=== PATIENT | female | born 1995 | race Caucasian/White ===

== ENCOUNTER 2018-06-20 08:45 | Inpatient (IN) ==
[2018-06-20] MEDS ORDERED: NALOXONE 0.4 MG/1 ML VIAL IVP PRN (20:42)
[2018-06-20] MEDS ORDERED: diphenhydrAMINE 50 MG/1 ML VIAL IVP PRN (20:42)
[2018-06-20] MEDS ORDERED: FAMOTIDINE 20 MG/2 ML VIAL IVP PRN ×2 (20:42)
[2018-06-20] MEDS ORDERED: OXYTOCIN 10 UNIT/1 ML IM PRN (20:42)
[2018-06-20] MEDS ORDERED: Misoprostol Tab 100 MCG TAB VAGINAL PRN (20:42)
[2018-06-20] MEDS ORDERED: Naloxone Inj 0.01 MG in Sodium Chloride 0.9% vial 1 ML IVP PRN (20:42)
[2018-06-20] MEDS ORDERED: Lidocaine 1% 10 MG/ML - 20 ML VIAL SUBCUT PRN (20:42)
[2018-06-20] MEDS ORDERED: METHYLERGONOVINE MALEATE 0.2 MG/1 ML VIAL IM PRN (20:42)
[2018-06-20] MEDS ORDERED: Nalbuphine Inj 20 MG/ML Ampule IVP PRN (20:42)
[2018-06-20] MEDS ORDERED: ONDANSETRON 4 MG/2 ML VIAL IVP PRN (20:42)
[2018-06-20] MEDS ORDERED: Metoclopramide Inj 10 MG/2 ML VIAL IV PRN (20:42)
[2018-06-20] MEDS ORDERED: Zolpidem Tab 5 MG TAB PO PRN (20:42)
[2018-06-20] MEDS ORDERED: Carboprost Inj 250 MCG/ML AMP IM PRN (20:42)
[2018-06-20] MEDS ORDERED: fentaNYL Inj 100 MCG/2 ML VIAL IV PRN (20:42)
[2018-06-20] MEDS ORDERED: CefOXitin Inj 2 GM in Sodium Chloride 0.9% 100 ML IV PRN (20:42)
[2018-06-20] MEDS ORDERED: ePHEDrine Inj 50 MG/ML AMP IVP PRN (20:42)
[2018-06-20] MEDS ORDERED: BUTORPHANOL TARTRATE 2 MG/1 ML VIAL IVP PRN (20:42)
[2018-06-20] MEDS ORDERED: CALCIUM CARBONATE 500 MG (TUMS) CHEWABLE TABLET PO PRN (20:42)
[2018-06-20] MEDS ORDERED: LIDOCAINE W/ SODIUM BICARB 0.5 ML SYR SUBD PRN (20:42)
[2018-06-20] MEDS ORDERED: CITRIC ACID/SODIUM CITRATE 30 ML CUP PO PRN (20:42)
[2018-06-20] MEDS ORDERED: MISOPROSTOL 200 MCG TABLET RECTAL PRN (20:42)
[2018-06-20] MEDS ORDERED: TERBUTALINE SULFATE 1 MG/1 ML SDV SUBCUT PRN (20:42)
[2018-06-20] MEDS ORDERED: LIDOCAINE HCL 2 % 10 ML JELLY URO-JECT TOPICAL PRN (20:42)
[2018-06-20] MEDS ORDERED: Phenylephrine Inj 50 MCG in Sodium Chloride 0.9% vial 0.5 ML IVP PRN (20:42)
[2018-06-20] MEDS ORDERED: Oxytocin 20 Units + LR 20 UNIT/1,000 ML BAG IV SCH (20:45)
[2018-06-20 21:14] LABS: Hematocrit [HCT] 33.5 % (37.0-47.0); MEAN CORPUSCULAR HEMOGLOBIN 28.4 PG (27-31); MEAN CORPUSCULAR HGB CONC 32.8 g/dL (33-37); MEAN CORPUSCULAR VOLUME 86.3 FL (81-99); MEAN PLATELET VOLUME 11.3 FL (7.4-12.2); RED BLOOD COUNT 3.88 10^6/uL (4.20-5.40)
[2018-06-21] MEDS: Lactated Ringers-OB Dept 1,000 ML PRIMARY IV SCH ×4 (01:35→16:46)
[2018-06-21] MEDS ORDERED: Oxytocin 20 Units + LR 20 UNIT/1,000 ML BAG IV SCH ×2 (04:05→15:04)
[2018-06-21] MEDS ORDERED: Fent/Bupiv 2mcg/0.0625% Epid 250 ML ONE (07:53)
--- NOTE | 2018-06-21 10:22 | OB.PROGRES ---
Date of Service: 06/21/18 Time of Service: 09:42 Interval History: Pt presented last night for cervical ripening prior to induction of labor today for symmetric IUGR. She was having occasional contractions upon admission. FHT were category 1. She was given 1 dose of cytotec and had irregular contractions. Pitocin augmentation was started early this morning. She had an epidural placed this morning at 0700 and is very comfortable. The pt was 5-6 cm at 0900, but baby was still high. Objective - Cervical Exam Cervical Exam: 5-6/70/-2 [place]: every 1-3 minutes, still irregular, some triplets Heart Rate: 120 baseline, occasional early decels. No other decels noted. Heart Rate Interpretation Category: Category I - Labs CBC and BMP: 06/20/18 21:00 - Vital Signs Last Taken Vital Signs: Vital Signs - Last Taken Temperature 98 F 06/21/18 07:45 Pulse Rate 85 06/21/18 09:15 Respiratory Rate 18 06/21/18 09:15 Blood Pressure 118/79 06/21/18 09:15 Pulse Ox 100 06/21/18 09:15 Assessment and Plan - Patient Problems (1) IUGR (intrauterine growth restriction) Current Visit: No Status: Acute - Assessment / Plan Additional Assessment/Plan Details: -comfortable with epidural. -pitocin augmentation underway. -AROM with clear fluid, baby came down nicely after this intervention. -anticipate normal vaginal delivery.
--- NOTE | 2018-06-21 14:55 | OB.DEL.SUM ---
Delivery Note Delivery Summary: After achieving complete dilation, the patient pushed for a short time to of a viable baby girl, Apgars 9/10, 6# 7oz, from OA postion, over an intact perineum. The placenta delivered promptly, spontaneously, intact with a 3 vessel cord. EBL 250 ml. There were no complications. Delayed cord clamping was observed. Mother and baby tolerated delivery well.
[2018-06-21] MEDS ORDERED: diphenhydrAMINE 25 MG CAPSULE PO PRN (15:04)
[2018-06-21] MEDS ORDERED: CALCIUM CARBONATE 500 MG (TUMS) CHEWABLE TABLET PO PRN (15:04)
[2018-06-21] MEDS ORDERED: BENZOCAINE/MENTHOL SPRAY 56 GM BOTTLE TOPICAL PRN (15:04)
[2018-06-21] MEDS ORDERED: diphenhydrAMINE 50 MG/1 ML VIAL IVP PRN (15:04)
[2018-06-21] MEDS ORDERED: LANOLIN HPA 40 GM TUBE TOPICAL PRN (15:04)
[2018-06-21] MEDS ORDERED: DIPH,PERTUSS,TET(ADACEL) VAC/PF 0.5 ML (Tdap) IM ONE (15:04)
[2018-06-21] MEDS ORDERED: GLYCERIN/WITCH HAZEL 1 BOX TOPICAL PRN (15:04)
[2018-06-21] MEDS ORDERED: Ondansetron ODT Tab 4 MG TAB PO PRN (15:04)
[2018-06-21] MEDS ORDERED: Nalbuphine Inj 20 MG/ML Ampule IVP PRN (15:04)
[2018-06-21] MEDS ORDERED: LIDOCAINE HCL 2 % 10 ML JELLY URO-JECT TOPICAL PRN (15:04)
[2018-06-21] MEDS ORDERED: ONDANSETRON 4 MG/2 ML VIAL IVP PRN (15:04)
[2018-06-21] MEDS ORDERED: ACETAMINOPHEN 325 MG TABLET PO PRN (15:04)
[2018-06-21] MEDS ORDERED: HYDROcodone-APAP 5 MG -325 MG TABLET PO PRN (15:04)
--- NOTE | 2018-06-21 15:17 | CRNA.PROCE ---
Central Neuraxis Block Placemt - - Safety Measures: Time Out Taken, Site Verified - - Type of Block: Epidural Reason for Block: Analgesia Moniters Used During Block: SPO2, NIBP Positioning: Sitting Skin Prep Used: ChloroPrep Draped: Yes Skin Infiltration - Enter Amount Used in Comment Field: 1% Xylocaine (mL): Yes (wheal) Spinal Needle Used: 18 Hustead 80 mm Local Anesthetic - Enter Amount Used in Comment Field: 5.0 % Xylocaine with Dextrose (ml): Yes (5ml Neg) Number of Centimeters Catheter Threaded: 4 Bioclusive Dressing Applied: Yes Anesthesia Time - Other Weight: 79.379 kg Height: 5 ft 7 in Body Mass Index (BMI): 27.3
--- NOTE | 2018-06-21 15:20 | CRNA.PROGR ---
Anesthesia Time - Procedure/Recovery Time Start Date: 06/21/18 End Date: 06/21/18 Anesthesia : Time In: 07:25 Anesthesia : Time Out: 08:00 Anesthesia : Total Time: 35 - Total Anesthesia Time Total Anesthesia Time (minutes): 35 - Other Weight: 79.379 kg Height: 5 ft 7 in Body Mass Index (BMI): 27.3 Physical Status: P2 Anesthesia Type: Epidural Obstetrics: Planned vaginal delivery w/ neuraxial labor anesthesia/analog
[2018-06-21] MEDS ORDERED: fentaNYL 2 MCG/BUPIVACAINE 0.0625%/NS 0.9% 250 ML BAG EPIDURAL SCH (15:30)
[2018-06-21] MEDS: IBUPROFEN 800 MG TABLET PO PRN (16:10)
[2018-06-21] MEDS ORDERED: RHO(D) IMMUNE GLOBULIN 1500 UNIT(300 mcg)SYRIN IM PRN (16:50)
[2018-06-21] MEDS: DOCUSATE 100 MG CAPSULE PO SCH (21:24)
[2018-06-22] MEDS: IBUPROFEN 800 MG TABLET PO PRN ×2 (02:21→11:41)
[2018-06-22 08:47] LABS: Hematocrit [HCT] 31.5 % (37.0-47.0); MEAN CORPUSCULAR HEMOGLOBIN 27.9 PG (27-31); MEAN CORPUSCULAR HGB CONC 31.7 g/dL (33-37); MEAN PLATELET VOLUME 11.4 FL (7.4-12.2); RED BLOOD COUNT 3.58 10^6/uL (4.20-5.40)
[2018-06-22] MEDS ORDERED: Prenatal Multivitamin Tab 1 TAB TAB PO SCH (09:00)
[2018-06-22] MEDS: DOCUSATE 100 MG CAPSULE PO SCH (09:03)
[2018-06-22 09:07] VITALS: BP 121/59; RESP 16; TEMP 97.7; O2SAT 99
[2018-06-22] MEDS ORDERED: FERROUS GLUCONATE 324 MG TABLET PO SCH (10:45)
--- NOTE | 2018-06-22 10:57 | OB.PROGRES ---
Subjective Post Day: 1 Pain Management: PO Manriquez Catheter: No Flatus: Yes Lochia Color: Rubra/Red Scant < 10 ml Diet: Regular Feeding Method: Exculsively Ambulating: Yes Objective - General General Appearance: POSITIVE: No Acute Distress, Cooperative - Cardiovacular Cardiovascular Exam: POSITIVE: RRR, No Murmur Edema: No Pedal Edema Extremities: Negative Jagdish's - Bilaterally - Respiratory Respiratory Exam: POSITIVE: Clear to Auscultation - Bilaterally, Breathing Non Labored - Abdomen Bowel Sounds: Present Assesstment / Plan (1) IUGR (intrauterine growth restriction) Current Visit: No Status: Acute (2) Status post vaginal delivery Current Visit: Yes Status: Acute Assessment / Plan: -routine cares. -breast feeding well. -rh negative--needs rhogam as baby was A+ and mom A- -rubella immune. -d/c home later today.
== END 2018-06-22 17:50 | disposition home or self-care (01) | DRG 807 ==
LOC: OBIP 20:02
PROVIDERS: ADMIT Family Medicine; ATTEND Family Medicine